=== PATIENT | female | born 1995 | race Two or more races ===

== ENCOUNTER 2019-12-19 13:42 | Emergency (ER) | payer OTHER ==
--- NOTE | 2019-12-19 15:12 | ED Physician Documentation ---
History of Present Illness - Stated complaint Stated Complaint: FEMALE - Chief complaint Chief Complaint: Abd Pain - Additonal information Additional information: 24-year-old female presents to the emergency department for concerns of possible early miscarriage. She reports that she has been having 6 days of brown vaginal spotting with light cramping. Last menstrual period November 06, 2019. This is her first . She denies any dysuria. She was seen at the [facility] and told recently that she had a hCG of 17,000. Review of Systems Eyes: reports: Reviewed and negative Ears: reports: Reviewed and negative Nose: reports: Reviewed and negative Throat: reports: Reviewed and negative Cardiac: reports: Reviewed and negative GI: reports: Abdominal Pain (abdominal cramping) : reports: Vaginal bleeding (brown spotting). denies: Dysuria, Frequency, Hesitancy Skin: denies: Rash, Lesions, Laceration (s), Bite / sting Musculoskeletal: denies: Neck pain, Back pain, Extremity pain, Joint pain, Extremity swelling Neurologic: reports: Reviewed and negative Psychiatric: reports: Reviewed and negative PD PAST MEDICAL HISTORY - Past Surgical History Past Surgical History: No - Present Medications Home Medications: Ambulatory Orders Medication Instructions Recorded Confirmed oxyCODONE [Roxicodone] 5 mg PO Q4-6H #10 tablet 12/02/15 - Allergies Allergies/Adverse Reactions: Allergies Allergy/AdvReac Type Severity Reaction Status Date / Time No Known Drug Allergies Allergy Verified 12/19/19 13:53 - Social History Does the pt smoke?: No Smoking Status: Never smoker Does the pt drink ETOH?: No Does the pt have substance abuse?: No - Immunizations Immunizations are current?: Yes PD ED PE NORMAL - General General: Alert and oriented X 3, No acute distress, Well developed/nourished - HEENT HEENT: PERRL, EOMI - Neck Neck: Supple, no meningeal sign, No adenopathy - Cardiac Cardiac: RRR, No murmur - Respiratory Respiratory: No respiratory distress - Abdomen Abdomen: Normal bowel sounds, Soft, Non tender, Non distended - Back Back: No CVA TTP, No spinal TTP - Derm Derm: Normal color, No rash Results - Vitals Vitals: Vital Signs - 24 hr 12/19/19 13:48 Temperature 37.1 C Heart Rate 79 Respiratory 18 Rate Blood Pressure 125/57 L O2 Saturation 99 Oxygen O2 Source Room air - Labs Labs: Laboratory Tests 12/19/19 12/19/19 12/19/19 14:43 15:12 15:12 WBC 6.0 RBC 3.65 L Hgb 12.7 Hct 35.7 L MCV 97.8 MCH 34.8 H MCHC 35.6 RDW 11.2 L Plt Count 279 MPV 9.3 Neut # (Auto) 3.9 Lymph # (Auto) 1.4 L [place] # (Auto) 0.5 Eos # (Auto) 0.1 Baso # (Auto) 0.0 Absolute Nucleated RBC 0.00 Nucleated RBC % 0.0 Sodium Potassium Chloride Carbon Dioxide Anion Gap BUN Creatinine Estimated GFR (MDRD) Glucose Calcium Total Bilirubin AST ALT Alkaline Phosphatase Total Protein Albumin Globulin Albumin/Globulin Ratio HCG, Quant Urine Color YELLOW Urine Clarity CLEAR Urine pH 6.0 Ur Specific [place] 1.020 Urine Protein NEGATIVE Urine Glucose (UA) NEGATIVE Urine Ketones NEGATIVE Urine Occult Blood NEGATIVE Urine Nitrite NEGATIVE Urine Bilirubin NEGATIVE Urine Urobilinogen 0.2 (NORMAL) Ur Leukocyte Esterase NEGATIVE Ur Microscopic Review NOT INDICATED Urine Culture Comments NOT INDICATED Urine HCG, Qual POSITIVE Blood Type O POSITIVE 12/19/19 12/19/19 15:12 15:12 WBC RBC Hgb Hct MCV MCH MCHC RDW Plt Count MPV Neut # (Auto) Lymph # (Auto) [place] # (Auto) Eos # (Auto) Baso # (Auto) Absolute Nucleated RBC Nucleated RBC % Sodium 132 L Potassium 3.5 Chloride 101 Carbon Dioxide 23 Anion Gap 8.0 BUN 14 Creatinine 0.6 Estimated GFR (MDRD) 123 Glucose 91 Calcium 9.7 Total Bilirubin 1.1 H AST 26 ALT 49 Alkaline Phosphatase 43 Total Protein 7.0 Albumin 4.4 Globulin 2.6 Albumin/Globulin Ratio 1.7 HCG, Quant 54181.00 Urine Color Urine Clarity Urine pH Ur Specific [place] Urine Protein Urine Glucose (UA) Urine Ketones Urine Occult Blood Urine Nitrite Urine Bilirubin Urine Urobilinogen Ur Leukocyte Esterase Ur Microscopic Review Urine Culture Comments Urine HCG, Qual Blood Type - Rads (name of study) pelvic US Radiology: Final report received (Single live IUP with ultrasound gestational age of 5 weeks and 6 days corresponding to ultrasound ABAD of 08/15/2019. Hypoechoic focus within the liver as above this appears inconsistent with a simple cyst or hemangioma unless lipid poor. While this could represent a compl ex cyst other etiologies can) PD MEDICAL DECISION MAKING - ED course Complexity details: reviewed old records, reviewed results, re-evaluated patient, considered differential, d/w patient ED course: To the emergency department in first trimester with 6 days of vaginal spotting. Concerned that she may be having a miscarriage. Patient is O+. Pelvic ultrasound reveals a live IUP 5 weeks 6 days. There are no other findings to suggest an ectopic or heterotopic . Her hCG today is 28,000. Patient reports to me that about 1 week ago she had an hCG of 17,000 so the 8 does appear to be rising. There is an incidental finding Of a hypoechoic focus within the liver. It does not appear consistent with a simple cyst but given the early we are unable to do further imaging such as MRI or CT. I have advised the patient and her of this finding. She is being given an ultrasound report to follow- up. I recommend that she have her hCG repeated in 48 hours through either the base physician or her OB if she is able to establish if not she may return to the ER to have the hCG repeated. Emergent return precautions for severe bleeding discussed. Departure - Departure Disposition: 01 Home, Self Care Clinical Impression: Threatened miscarriage in early , Liver lesion Condition: Stable Record reviewed to determine appropriate education?: Yes Instructions: ED Miscarriage Poss Comments: The ultrasound today shows that you are approximately 5 weeks 6 days . Your estimated due date is August 15, 2019. Your hCG level today was 28,000. This should be repeated in 48 hours. This can be done either through the base physician the OB you will establish with or if unable to arrange follow-up please return to the ER to have this lab drawn. The ultrasound did show a lesion within the liver that we are unsure what it may be today. It is important that a repeat ultrasound is completed in 2 to 3 weeks to have it reevaluated. Once you are past your second trimester in more definitive imaging such as a CAT scan or an MRI can be completed. If you develop fevers, have severe vaginal bleeding, feel faint or short of breath please return to the ER
[2019-12-19 15:15] LABS: BILIRUBIN,URINE NEGATIVE (NEGATIVE); GLUCOSE, URINE (UA) NEGATIVE (NEGATIVE); KETONES,URINE (UA) NEGATIVE (NEGATIVE); LEUKOCYTE ESTERASE, URINE NEGATIVE (NEGATIVE); NITRITE,URINE NEGATIVE (NEGATIVE); OCCULT BLOOD,URINE NEGATIVE (NEGATIVE); PROTEIN,URINE NEGATIVE (NEGATIVE); UROBILINOGEN,URINE 0.2 (NORMAL) E.U./dL (NORMAL)
[2019-12-19 15:17] LABS: CLARITY,URINE CLEAR (CLEAR); HCG UR QUAL POSITIVE
[2019-12-19 15:24] LABS: BASOPHILS % (AUTO) 0.3 %; EOSINOPHILS # (AUTO) 0.1 10^3/uL (0.0-0.7); EOSINOPHILS % (AUTO) 1.5 %; HGB - HEMOGLOBIN 12.7 g/dL (12.0-16.0); LYMPHOCYTES # (AUTO) 1.4 10^3/uL (1.5-3.5); LYMPHOCYTES % (AUTO) 23.6 %; MEAN CORPUSCULAR HEMOGLOBIN 34.8 pg (27.0-31.0); MEAN CORPUSCULAR HGB CONC 35.6 g/dL (32.0-36.0); MEAN CORPUSCULAR VOLUME 97.8 fL (81.0-99.0); MEAN PLATELET VOLUME 9.3 fL (7.9-10.8); MONOCYTES # (AUTO) 0.5 10^3/uL (0.0-1.0); MONOCYTES % (AUTO) 8.8 %; NEUTROPHILS # (AUTO) 3.9 10^3/uL (1.5-6.6); NEUTROPHILS % (AUTO) 65.5 %; PLT - PLATELET COUNT 279 10^3/uL (130-450); RED BLOOD COUNT 3.65 10^6/uL (4.20-5.40); RED CELL DISTRIBUTION WIDTH 11.2 % (12.0-15.0)
[2019-12-19 15:41] LABS: ALBUMIN 4.4 g/dL (3.2-5.5); ALBUMIN/GLOBULIN RATIO 1.7 (1.0-2.2); BILIRUBIN,TOTAL 1.1 mg/dL (0.2-1.0); CALCIUM 9.7 mg/dL (8.5-10.3); CREATININE 0.6 mg/dL (0.4-1.0)
--- NOTE | 2019-12-19 16:04 | Ultrasound Report ---
PROCEDURE: OB First Trimester INDICATIONS: vaginal spotting OUTSIDE/PRIOR DATING DATA: Last menstrual period (LMP): 11/06/19. LMP-based estimated date of delivery (ABAD): 08/12/2020 First dating scan (date and location): 12/19/2019. Estimated date of delivery (ABAD) from first dating scan: 08/14/2020. TECHNIQUE: Real-time scanning was performed of the fetus and maternal pelvic organs, with image documentation. COMPARISON: None FINDINGS: Embryo: Single live intrauterine is identified with heart rate 99 bpm. [place]-rump le ngth measures 3 mm, corresponding to 5 weeks 6 days. Measurement variability in dating: +/- 4 weeks by LMP, +/- 7 days by mean sac diameter (use before 6 weeks gestation if crown-rump length not able to be measured), +/- 5 days by crown-rump length (6-12 weeks gestation). Maternal organs: Ovaries are unremarkable. Limited images through the kidneys demonstrate no hydron ephrosis. There is mild fluid within the posterior cul-de-sac. An ill-defined hypoechoic mass is pre sent within the liver measuring 29 x 22 mm. No priors are available for comparison. IMPRESSION: 1. Single live intrauterine with ultrasound gestational age of 5 weeks 6 days corresponding to ultrasound ABAD of 08/15/2019. 2. Hypoechoic focus within the liver as above. This appears inconsistent with a simple cyst or shelly ioma, unless lipid poor. While this could represent a complex cyst, other etiologies cannot be exclud ed. Given , evaluation with CT or MRI is markedly limited. Short interval imaging follow-up with ultrasound is recommended until second trimester when MRI may be obtained. Reviewed by: Yudith Samson MD on 12/19/2019 4:03 PM PDT Approved by: Yudith Samson MD on 12/19/2019 4:03 PM PDT Station ID: [id number]
[2019-12-19 16:44] VITALS: BP 114/7
[2019-12-19 18:38] LABS: CANDIDA GROUP DNA NEGATIVE (NEGATIVE); CANDIDA KRUSEI DNA NEGATIVE (NEGATIVE); TRICHOMONAS VAGINALIS DNA NEGATIVE (NEGATIVE)
== END 2019-12-19 16:44 | disposition home or self-care (01) ==
LOC: ED 13:42
DX: O20.0 Threatened abortion (principal); O26.891 Other specified pregnancy related conditions, first trimester; K76.9 Liver disease, unspecified; Z3A.01 Less than 8 weeks gestation of pregnancy
CPT/HCPCS: 36415; 76801; 76817; 80053; 81001; 81003; 81025; 81599; 84702; 85025; 86900; 86901; 87086; 87210; 87491; 87591; 87661; 87801; 99284

== ENCOUNTER 2020-07-21 08:00 | Outpatient (CLI) | payer OTHER | END 2020-07-21 23:59 | disposition home or self-care (01) | LOC: LAB.R 08:00 | PROVIDERS: ATTEND Advanced Practice Midwife | DX: Z34.90 Encounter for supervision of normal pregnancy, unspecified, unspecified trimester (principal); Z36.85 Encounter for antenatal screening for Streptococcus B | CPT/HCPCS: 87797 ==

== ENCOUNTER 2020-08-06 14:07 | Outpatient (CLI) | payer OTHER ==
[2020-08-06 14:35] VITALS: BP 119/69
--- NOTE | 2020-08-06 16:35 | Ultrasound Report ---
PROCEDURE: OB Limited INDICATIONS: Vaginal bleeding in 3rd trimester-r/o abruption OUTSIDE/PRIOR DATING DATA: Last menstrual period (LMP): 11/06/2019. LMP-based estimated date of delivery (ABAD): 08/12/2020. First dating scan (date and location): 12/19/2019. Estimated date of delivery (ABAD) from first dating scan: 08/14/2020. Provider states 08/12/2020. TECHNIQUE: Real-time scanning was performed of the fetus, with image documentation. Endovaginal scanning: Not needed COMPARISON: 12/19/2019 OB ultrasound.. FINDINGS: A single living intrauterine gestation is present. Presentation: Vertex Placenta: Placental position is anterior, without previa. Amniotic fluid index: 19.5 cm, 17.2 percentile for gestational age. heart rate: 153 beats per minutes. Maternal cervical canal: Normal in morphology where well seen. No funneling. . Estimated gestational age from initial scan: 39 weeks 1 day. IMPRESSION: A definite source of reported vaginal bleeding is not seen. Placental abruption was not identified. heart rate is normal at 1 53 bpm and the amniotic fluid index also is normal. Reviewed by: Jim Nesbitt MD on 08/06/2020 4:34 PM PDT Approved by: Jim Nesbitt MD on 08/06/2020 4:34 PM PDT Station ID: [id number]
--- NOTE | 2020-08-07 11:45 | PROVIDER PROGRESS NOTE ---
- HPI Chief Complaint: Vaginal bleeding Current : Current EDU 08/12/20 Gestation 39 Weeks and 1 Days 1 Para 0 Vital Signs Temperature 36.8 C 08/06/20 14:29 Heart Rate 94 08/06/20 14:29 Respiratory Rate 16 08/06/20 14:29 Blood Pressure 119/69 08/06/20 14:29 O2 Saturation 100 08/06/20 14:29 Temperature 36.8 C 08/06/20 14:29 Heart Rate 94 08/06/20 14:29 Respiratory Rate 16 08/06/20 14:29 Blood Pressure 119/69 08/06/20 14:29 O2 Saturation 100 08/06/20 14:29 - Procedures OB Procedure Performed: NST NST Procedure: NST Procedure Start Date 08/06/20 Start Time 14:20 Stop Time 15:00 Vibroacoustic Stimulation Used No Patient States Movement Yes - Plan Plan: S: Nataly presents to triage today for ongoing bleeding since last night. She reports having intercourse last night, then when she got up to urinate she experienced bright red bleeding that dripped into the toilet that she felt was coming from her vagina. She called the on-call CNM and was advised that if the bleeding had stopped, and there were no ctx, and +FM she could watch and wait. She then reports going to the bathroom to urinate and defecate, and when she looked into the toilet it was "filled with blood". She reports notmal movment and denies GIVENS, LOF, or ctx. O: Speculum exam reveals closed cervix and no trace blood or discolored discharge SVE- closed/thick/high US- no signs of abruption or identified source of bleeding NST perform date: 08/06/2020 NST read date: 08/06/2020 baseline 145, moderate variability, accels, no decels- some periods of prolonged accelerations/baseline change with reported activity during that time. Baseline returned to wnl before discharge A: 25yo at 39.1 wks with abnormal bleeding in , possibly from rectum No signs of placental abruption or vaginal/cervical laceration NST impression: reactive P: Continue with routin care Call or return with any further symptoms, or when in labor!
== END 2020-08-06 17:20 | disposition home or self-care (01) ==
LOC: WFO 14:07 → FBP 14:11 → WFO 17:20
PROVIDERS: ATTEND Advanced Practice Midwife
DX: O46.93 Antepartum hemorrhage, unspecified, third trimester (principal); Z3A.39 39 weeks gestation of pregnancy
CPT/HCPCS: 59025; 99213

== ENCOUNTER 2020-08-14 16:43 | Inpatient (IN) | payer OTHER ==
[2020-08-14] MEDS ORDERED: SODIUM CHLORIDE FLUSH 0.9% 10 ML SYRINGE IVP PRN (17:43)
[2020-08-14] MEDS ORDERED: OXYTOCIN/SODIUM CHLORIDE 500 ML IV PRN (17:43)
[2020-08-14] MEDS ORDERED: TRANEXAMIC ACID IN NACL 1,000 MG/100 ML BAG IV PRN (17:43)
[2020-08-14] MEDS ORDERED: CARBOPROST TROMETHAMINE 250 MCG/ML AMP IM PRN (17:43)
[2020-08-14] MEDS ORDERED: METHYLERGONOVINE 0.2 MG/ML VIAL IM PRN (17:43)
[2020-08-14] MEDS ORDERED: LIDOCAINE-MPF 1% 30 ML VIAL ID PRN (17:43)
[2020-08-14] MEDS ORDERED: OXYTOCIN 10 UNIT/ML VIAL IM PRN (17:43)
[2020-08-14] MEDS ORDERED: miSOPROStoL 200 MCG TABLET BC PRN (17:43)
[2020-08-14] MEDS ORDERED: ONDANSETRON 4 MG/2 ML VIAL IVP PRN (17:43)
--- NOTE | 2020-08-14 17:56 | HISTORY & PHYSICAL EXAMINATION ---
Admit History - Visit Reason Visit Reason: Other - : 1 Parity: 0 Premature: 0 Ectopic: 0 : 0 Care: positive: [facility] Risk/History: positive: None Complications This : positive: None Smoking Status: Never smoker - Mother's Labs Mother's Blood Type: positive: O Mother's RH: positive: Positive GBS: positive: Group B Step Negative Rubella Status: positive: Immune Meds/Allgy - Home Medications Home Medications: Ambulatory Orders Medication Instructions Recorded Confirmed oxyCODONE [Roxicodone] 5 mg PO Q4-6H #10 tablet 12/02/15 - Allergies Allergies/Adverse Reactions: Allergies Allergy/AdvReac Type Severity Reaction Status Date / Time No Known Drug Allergies Allergy Verified 12/19/19 13:53 Review of Systems - Constitutional Constitutional: denies: Fatigue, Fever, Chills, Malaise - Eyes Eyes: denies: Blurred vision, Spots in vision, Dipolpia - Cardiovascular Cariovascular: denies: Irregular heart rate, Palpitations, Chest pain, Edema - Respiratory Respiratory: denies: Cough, SOB at rest - Gastrointestinal Gastrointestinal: denies: Constipation, Diarrhea, Change in bowel habits, Nausea, Vomiting - Integumentary Integumentary: denies: Rash, Pruritis - Neurological Neurological: denies: Headache Physical - Abdominal Exam Vital Signs: Temp Pulse Resp BP Pulse Ox 36.7 C 100 16 114/67 08/14/20 17:16 08/14/20 17:16 08/14/20 17:16 08/14/20 17:16 Contraction Frequency (min/apart): intermittent Contraction Intensity: positive: Mild Uterine Resting Tone: positive: Soft - Monitoring Heart Rate Baseline: 135 Strip Review: positive: Category I - Presentation Presentation: positive: Vertex - Vaginal Exam Membranes: positive: Membranes intact Dilation (in cm): 1 Effacement (%): 50 Station: positive: -3 Cervical Position: positive: Posterior - Speculum Exam Speculum Exam Performed: positive: No Plan for Labor - Plan For Labor I expect patient to be DC'd or transferred within 96 hours.: Yes Plan for Labor: HPI: Nataly is a 25yo @ 40.2wks gestation by LMP c/w 10.2wk U/S who presents to [facility] for elective induction of labor. She denies vaginal bleeding or leakage of fluid. She reports +FM. She is not feeling any of the contractions that are noted via tocometry. SVE 150/-3, posterior, medium consistency. Vertex. She has been a patient of [facility] since her transfer of care from [facility] at 32wks gestation. She has received consistent care through the duration of her which has remained uncomplicated. She will be placed in observation status for pre-induction cervical ripening with misoprostol and was consented for elective induction of labor in the office last week. She is supported by her parter Thony. Dating Criteria: LMP 11/06/2019 Initial U/S @ 10.2wks c/w LMP dating Serial exams - agree Medications: PNV Allergies: NKDA OB Hx: G1: Current PMHx: no significant Surgical Hx: [place] teeth 2014 Social Hx: Never smoker, no etoh or IVDA. Partner Thony is active duty. Expecting a girl - planning to name her Roseanna. Family Hx: no significant course: Initial U/S: at 10.2wks at [facility] c/w sure LMP for final ABAD 08/12/2020 O pos/Rubella immune VZV- immune Gentic testing: Serum- neg; CF- neg; SMNI neg FAS: Anterior placenta. FRACISCO wnl. 3VC. EFW 38%. f/u outflow tracks f.u wnl Glucola: 117 Flu: received at [facility] TDAP : received at [facility] GBS & GC/CT at 36.6 NEG HSV: denies self and partner Breast pump Rx : already received MOD: . Spouse Thony. GIRL: Roseanna. Epidural would be "last resort" pp contraception: POPs PAP: 02/2019- nilm (LGSIL 11/25) Physical exam: Normocephalic, atraumatic Heart RRR w/o M/G/R Lungs CTAB Abdomen gravid, soft, and nontender EFW 3800g FHR baseline 135, moderate variability, + accels, no decels Contractions palpate mild intermittently via tocometry SVE 1/50/-3, posterior. Medium consistency. Vertex. Bilateral LE's no edema. Mood is good. Assessment: 25yo @ 40.2wks gestation by LMP c/w 10.2wk U/S Elective IOL FHR Category I GBS neg Plan: Initiate 50mcg BC misoprostol q 4 hours for cervical ripening Ambien PRN for sleep Continuous monitoring Repeat SVE in 4 hours and consider brown cervical ripening balloon if unchanged. Anticipate . Pt and partner at the bedside verbalized understanding and agrees to above plan. She denies further questions or concerns at this time.
[2020-08-14] MEDS: miSOPROStoL 100 MCG TABLET BC SCH ×2 (18:30→22:35)
[2020-08-14 18:39] LABS: BASOPHILS % (AUTO) 0.3 %; EOSINOPHILS # (AUTO) 0.1 10^3/uL (0.0-0.7); EOSINOPHILS % (AUTO) 1.1 %; HCT - HEMATOCRIT 33.3 % (37.0-47.0); HGB - HEMOGLOBIN 11.6 g/dL (12.0-16.0); LYMPHOCYTES # (AUTO) 1.4 10^3/uL (1.5-3.5); LYMPHOCYTES % (AUTO) 21.3 %; MEAN CORPUSCULAR HEMOGLOBIN 33.9 pg (27.0-31.0); MEAN CORPUSCULAR HGB CONC 34.8 g/dL (32.0-36.0); MEAN CORPUSCULAR VOLUME 97.4 fL (81.0-99.0); MEAN PLATELET VOLUME 9.5 fL (7.9-10.8); MONOCYTES # (AUTO) 0.5 10^3/uL (0.0-1.0); MONOCYTES % (AUTO) 8.1 %; NEUTROPHILS # (AUTO) 4.4 10^3/uL (1.5-6.6); NEUTROPHILS % (AUTO) 68.7 %; PLT - PLATELET COUNT 297 10^3/uL (130-450); RED BLOOD COUNT 3.42 10^6/uL (4.20-5.40); WHITE BLOOD COUNT 6.3 x10^3/uL (4.8-10.8)
[2020-08-14] MEDS: LACTATED RINGERS 1,000 ML IV SCH (19:57)
[2020-08-14] MEDS: ZOLPIDEM 5 MG TABLET PO PRN (22:35)
[2020-08-15] MEDS: SODIUM CHLORIDE FLUSH 0.9% 10 ML SYRINGE IVP SCH ×2 (02:45→02:49)
[2020-08-15] MEDS: miSOPROStoL 100 MCG TABLET BC SCH ×4 (02:47→21:55)
--- NOTE | 2020-08-15 09:53 | PROVIDER PROGRESS NOTE ---
Labor Progress Note - Uterine Monitoring Uterine Monitoring Mode: positive: External toco Contraction Frequency (min/apart): intermittent Contraction Intensity: positive: Mild Uterine Resting Tone: positive: Soft - Monitoring Heart Rate Baseline: 130 Heart Rate Variability: positive: Moderate (6-25 bmp) Accelerations: positive: Present, 15x15 Strip Review: positive: Category I - Vaginal Exam Dilation (in cm): 1 Effacement (%): 50 Station: -3 Cervical Position: Anterior - Labor Progress Note Labor Progress Note/Additional Text: S: Pt states she slept well last night after taking the ambien. Her partner is supportive at the bedside. She denies vaginal bleeding or leakage of fluid. She is unable to appreciate contractions and states she feels like it is just the baby moving. She denies concerns or complaints at this time. O: FHR baseline 130s, moderate variability, + accels. One prolonged late deceleration noted when the pt stood up after using the bathroom. This is an isolated deceleration and has not occurred prior to or since that time. Contractions palpate mild every 3-8 minutes with soft resting tone SVE 1/50/-3, anterior. Vertex. Membranes intact. S/p 4 doses of 50mcg BC misoprostol [place] cervical ripening balloon placed with 60mL in uterine lumen and 60mL in vaginal lumen - pt tolerate placement well A: 25yo @ 40.3wks gestation Elective IOL GBS neg FHR Category I P: Cervical ripening balloon x 12 hours. Continue 50mcg BC misoprostol q 4 hours. Continuous monitoring Encouraged ambulation and position changes. Jacuzzi PRN. Nitrous oxide PRN. Pt and partner verbalized understanding and agree to above plan. She denies further questions or concerns at this time.
[2020-08-15] MEDS: LACTATED RINGERS 1,000 ML IV SCH (12:37)
--- NOTE | 2020-08-15 14:16 | PROVIDER PROGRESS NOTE ---
Labor Progress Note - Uterine Monitoring Uterine Monitoring Mode: positive: External toco Contraction Frequency (min/apart): 1-4 Contraction Intensity: positive: Mild Uterine Resting Tone: positive: Soft - Monitoring Monitor Mode: positive: External ultrasound Heart Rate Baseline: 150 Heart Rate Variability: positive: Moderate (6-25 bmp) Accelerations: positive: Present, 15x15 Strip Review: positive: Category I - Labor Progress Note Labor Progress Note/Additional Text: I was called to the bedside secondary to prolonged late deceleration. This is the second prolonged late deceleration the patient has had. Of note, the patient states she was bearing down to have a bowel movement with each episode. FHR recovered with initial period of minimal variability following deceleration however this has improved and currently FHR baseline 150, moderate variability, + accels, no decels. Misoprostol held at this time. [place] cervical ripening balloon remains in place. eye glass frame polisher physician notified and agrees with plan to proceed at this time. Continuous monitoring.
[2020-08-15] MEDS: ZOLPIDEM 5 MG TABLET PO PRN (23:09)
[2020-08-16] MEDS: miSOPROStoL 100 MCG TABLET BC SCH (02:24)
--- NOTE | 2020-08-16 08:07 | PROVIDER PROGRESS NOTE ---
Labor Progress Note - Uterine Monitoring Uterine Monitoring Mode: positive: External toco Contraction Frequency (min/apart): 4-8 Contraction Intensity: positive: Mild Uterine Resting Tone: positive: Soft - Monitoring Monitor Mode: positive: External ultrasound Heart Rate Baseline: 130 Heart Rate Variability: positive: Moderate (6-25 bmp) Accelerations: positive: Present, 15x15 Decelerations: positive: None Strip Review: positive: Category I - Vaginal Exam Dilation (in cm): 3 Effacement (%): 90 Station: -3 Cervical Position: Midposition - Labor Progress Note Labor Progress Note/Additional Text: S: Nataly slept well throughout the night after taking an ambien. Her partner is currently at the bedside and is supportive. She states she is starting to feeling more uncomfortable with the contractions. She denies vaginal bleeding or leakage of fluid. Her mood is good. O: BP 114/61, HR 62, RR 18, T 36.9 FHR baseline 140, moderate variability, + accels, no decels at present Contractions palpate mild every 4-8 minutes with soft resting tone SVE 3/90/-3, midposition, soft. Vertex. Membranes intact - bulging. A: 25yo @ 40.4wks gestation by LMP c/w 10.2wk U/S Elective IOL FHR Category I GBS neg P: Admit to [facility] (previously in observation status) Continuous monitoring Initiate pitocin with titration per protocol for induction of labor at 0900. Jacuzzi PRN. Nitrous oxide PRN. Epidural per maternal request. Anticipate . Total care handed to building construction foreman physician Dr. Henson by phone.
[2020-08-16] MEDS ORDERED: OXYTOCIN/SODIUM CHLORIDE 500 ML IV SCH (09:00)
--- NOTE | 2020-08-16 09:54 | PROVIDER PROGRESS NOTE ---
Subjective - Subjective Subjective: I assumed care of Nataly today from [facility]--healthy 25yo G1 at 40w4d undergoing elective IOL. In the past 48h she has had 2 large variable decelerations lasting about 3min associated with position changes so she is not a candidate for discharge home. Currently she is feeling moderate contractions q5min. PMH neg, no allergies, no complications, dated by LMP c/w 10w US. AVSS Category 1 NST [place] not picking up well Last SVE /-3/mid/soft/BBOW A/P: 25yo P0 at 40w4d, elective IOL Labor: 3cm, start pitocin, has had ripening for 2d with cervical balloon and multiple doses of misoprostol. Anticipate . Prefers unmedicated . Fetus: Vertex, category 1 NST currently, EFW 3800g, normal anatomy, normal genetic screening , GBS neg : no issues identified. O+, RI/, s/p Tdap Objective - Vital Signs/Intake & Output Intake & Output: Intake & Output 08/13/20 08/14/20 08/15/20 08/16/20 23:59 23:59 23:59 23:59 Intake Total 791.666 Balance 791.666 - Lab Results Fish Bones: 08/14/20 18:31
[2020-08-16] MEDS ORDERED: BUPIVACAINE 0.25% PF 10 ML VIAL ONE (12:51)
[2020-08-16] MEDS ORDERED: fentaNYL 100 MCG/2 ML VIAL ONE ×2 (12:51→15:34)
[2020-08-16] MEDS ORDERED: ROPIVACAINE 0.2% 200 MG/100 ML BAG EP ONE (12:51)
[2020-08-16] MEDS ORDERED: METOCLOPRAMIDE 10 MG/2 ML VIAL IVP PRN ×2 (13:49→17:13)
[2020-08-16] MEDS ORDERED: NALBUPHINE 10 MG/ML AMP IVP PRN ×2 (13:49→17:13)
[2020-08-16] MEDS ORDERED: NALOXONE 0.4 MG/ML VIAL IVP PRN ×2 (13:49→17:13)
[2020-08-16] MEDS ORDERED: ROPIVACAINE 0.2% 200 MG/100 ML BAG EP PRN (13:49)
[2020-08-16] MEDS ORDERED: ONDANSETRON 4 MG/2 ML VIAL IVP PRN ×2 (13:49→17:13)
[2020-08-16] MEDS ORDERED: diphenhydrAMINE INJ 50 MG/ML VIAL IVP PRN ×2 (13:49→17:13)
[2020-08-16] MEDS ORDERED: ePHEDrine 50 MG/ML VIAL IVP PRN ×2 (13:49→17:13)
--- NOTE | 2020-08-16 13:49 | ANESTHESIA ---
Pre-Anesthesia VS, & Labs - Diagnosis Active labor - Procedure Labor epidural Vital Signs: Temp Pulse Resp BP Pulse Ox 36.7 C 100 16 114/67 08/14/20 17:16 08/14/20 17:16 08/14/20 17:16 08/14/20 17:16 Height: 4 ft 11 in Weight (kg): 84.55 kg Body Mass Index: 37.6 BMI Classification: Obese - NPO >8 hours - Is Patient ?: Yes - Lab Results Current Lab Results: Laboratory Tests 08/14/20 18:31: Blood Type O POSITIVE, Antibody Screen NEGATIVE 08/14/20 18:31: WBC 6.3, RBC 3.42 L, Hgb 11.6 L, Hct 33.3 L, MCV 97.4, MCH 33.9 H, MCHC 34.8, RDW 14.0, Plt Count 297, MPV 9.5, Neut # (Auto) 4.4, Lymph # (Auto) 1.4 L, [place] # (Auto) 0.5, Eos # (Auto) 0.1, Baso # (Auto) 0.0, Absolute Nucleated RBC 0.00, Nucleated RBC % 0.0 Lab results reviewed: Yes Fish Bones: 08/14/20 18:31 Home Medications and Allergies Active Medications Carboprost Tromethamine (Carboprost Tromethamine 250 Mcg/Ml Amp) 250 mcg IM Q15M PRN PRN Reason: Step 4: Hemorrhage protocol Stop: 08/19/20 17:43 Oxytocin/Sodium Chloride (Pitocin/Sodium Chloride) 500 mls @ 999 mls/hr IV PRN PRN; Protocol PRN Reason: POST- HEMORR PREVENTION Stop: 08/19/20 17:43 Tranexamic Acid (Tranexamic 1,000 Mg/100ml-Nacl) 1,000 mg in 100 mls @ 600 mls/hr IV .ONCE PRN PRN Reason: EBL >1200mL and within 3hr Stop: 08/19/20 17:43 Lactated Ringer's (Lr) 1,000 mls @ 100 mls/hr IV .Q10H NIKKO Last Infusion: 08/16/20 10:05 Dose: 100 mls/hr Documented by: Oxytocin/Sodium Chloride (Pitocin/Sodium Chloride) 500 mls @ 1 mls/hr IV TITR NIKKO; Protocol Last Admin: 08/16/20 10:05 Dose: 1 milliunit/min, 1 mls/hr Documented by: Lidocaine HCl (Lidocaine-Mpf 1% 30 Ml Vial) 30 ml ID .ONCE PRN PRN Reason: PERINEAL REPAIR Stop: 08/19/20 17:43 Methylergonovine Maleate (Methylergonovine 0.2 Mg/Ml Vial) 0.2 mg IM .ONCE PRN PRN Reason: Step 2: Hemorrhage protocol Stop: 08/19/20 17:43 Misoprostol (Misoprostol 200 Mcg Tablet) 800 mcg BC .ONCE PRN PRN Reason: Step 3: Hemorrhage protocol Stop: 08/19/20 17:43 Misoprostol (Misoprostol 100 Mcg Tablet) 50 mcg BC Q4HR [facility] Last Admin: 08/16/20 02:24 Dose: 50 mcg Documented by: Ondansetron HCl (Ondansetron 4 Mg/2 Ml Vial) 4 mg IVP Q4HR PRN PRN Reason: Nausea / Vomiting Oxytocin (Oxytocin 10 Unit/Ml Vial) 10 unit IM .ONCE PRN PRN Reason: Step one: If no IV access Stop: 08/19/20 17:43 Sodium Chloride (Sodium Chloride Flush 0.9% 10 Ml Syringe) 10 ml IVP 0100,0900,1700 [facility] Last Admin: 08/15/20 02:49 Dose: 10 ml Documented by: Sodium Chloride (Sodium Chloride Flush 0.9% 10 Ml Syringe) 10 ml IVP PRN PRN PRN Reason: NEEDED PER PROVIDER ORDERS Zolpidem Tartrate (Zolpidem 5 Mg Tablet) 5 mg PO QPM PRN PRN Reason: Insomnia Last Admin: 08/15/20 23:09 Dose: 5 mg Documented by: Allergies/Adverse Reactions: Allergies Allergy/AdvReac Type Severity Reaction Status Date / Time No Known Drug Allergies Allergy Verified 12/19/19 13:53 Anes History & Medical History - Anesthetic History Anesthesia Complications: reports: No previous complications Family history of Anesthesia Complications: Denies Family history of Malignant Hyperthermia: Denies - Medical History Cardiovascular: reports: None Pulmonary: reports: None Gastrointestinal: reports: None Urinary: reports: None Neuro: reports: None Musculoskeletal: reports: None Endocrine/Autoimmune: reports: None Blood Disorders: reports: None Skin: reports: None Smoking Status: Never smoker Psychosocial: reports: No issues indicated History of Cancer?: No - Obstetrical History : 1 Parity: 0 Events: reports: None Complications: reports: None Exam General: Alert, Oriented x3, Cooperative, No acute distress Plan Anesthesia Type: Epidural Consent for Procedure(s) Verified and Reviewed: Yes Code Status: Attempt Resuscitation ASA classification: 2-Mild systemic disease Is this case an emergency?: No
--- NOTE | 2020-08-16 13:55 | PROVIDER PROGRESS NOTE ---
Labor Progress Note - Labor Progress Note Labor Progress Note/Additional Text: comfortable with epidural, pain 04/20. Category 1 NST with early decels. [place] was q2min, pit turned down, now UC less frqeuent than q3min. 8-9/100/-3. Unusually high station for primip especially. Will work back up on pitocin, do aggressive position changes with peanut ball, and consider AROM later.
[2020-08-16] MEDS ORDERED: TERBUTALINE 1 MG/ML VIAL SUBQ ONE (14:23)
--- NOTE | 2020-08-16 14:38 | PROVIDER PROGRESS NOTE ---
Subjective - Subjective Subjective: Initally was having a early decels with contractions, now having variable decel with every contraction including a 2.5min one with ton of 70bpm. Pitocin off, IVF bolus going, doing position changes which has helped. Ongoing variablity is excellent and baseline is 135bpm. 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 Terbutaline readily available. Patient consented for possible . Procedure and recovery reviewed. Risks include but not limited to bleeding, infection, trauma to local organs, anesthesia complications, and problems with future pregnancies due to scar on the uterus. All questions answered and consent signed. [employer] prep done. Objective - Vital Signs/Intake & Output Intake & Output: Intake & Output 08/13/20 08/14/20 08/15/20 08/16/20 23:59 23:59 23:59 23:59 Intake Total 791.666 0 Balance 791.666 0 - Lab Results Fish Bones: 08/14/20 18:31
[2020-08-16] MEDS ORDERED: ceFAZolin 2 GM/50 ML 2 GM/50 ML BAG IV ONE (15:32)
[2020-08-16] MEDS ORDERED: MORPHINE PF 5 MG/10 ML VIAL ONE (15:34)
[2020-08-16] MEDS ORDERED: LIDOCAINE 2%-EPI 1:100000 20 ML MDV ONE (15:34)
[2020-08-16] MEDS ORDERED: LIDOCAINE MPF 2%-EPI 1:200000 20 ML VIAL ONE (15:36)
[2020-08-16] MEDS ORDERED: LIDOCAINE 1% 50 ML MDV ONE (15:38)
[2020-08-16] MEDS ORDERED: ceFAZolin 1 GM VIAL ONE (15:38)
[2020-08-16] MEDS ORDERED: ONDANSETRON 4 MG/2 ML VIAL ONE (15:39)
[2020-08-16] MEDS ORDERED: SODIUM CHLORIDE 0.9% 10 ML VIAL IVP ONE (15:41)
[2020-08-16] MEDS ORDERED: fentaNYL 100 MCG/2 ML VIAL EP ONE (16:00)
[2020-08-16] MEDS ORDERED: MORPHINE PF 5 MG/10 ML VIAL EP ONE (16:00)
[2020-08-16] MEDS ORDERED: miSOPROStoL 200 MCG TABLET ONE (16:01)
[2020-08-16] MEDS ORDERED: CARBOPROST TROMETHAMINE 250 MCG/ML AMP IM ONE (16:02)
[2020-08-16] MEDS ORDERED: METHYLERGONOVINE 0.2 MG/ML VIAL ONE (16:02)
[2020-08-16] MEDS ORDERED: SODIUM CHLORIDE 0.9% 300 ML IV ONE (17:07)
--- NOTE | 2020-08-16 17:13 | ANESTHESIA POST OP EVALUATION ---
Anesthesia Post Eval - Post Anesthesia Eval Vitals: Last Vital Signs Temp 36.6 C 08/16/20 17:05 Pulse 92 08/16/20 17:05 Resp 17 08/16/20 17:05 BP 110/66 08/16/20 17:05 Pulse Ox 99 08/16/20 17:05 CV Function Including HR & BP: Stable Pain Control: Satisfactory Nausea & Vomiting: Negative Mental Status: Baseline Respiratory Status: Airway Patent Hydration Status: Satisfactory Anesthesia Complications: None
[2020-08-16] MEDS ORDERED: HYDROCORTISONE 1% CREAM 28 GM TUBE PR PRN (17:14)
[2020-08-16] MEDS ORDERED: WITCH HAZEL/GLYCERIN 1 PAD TOP PRN (17:14)
[2020-08-16] MEDS ORDERED: ONDANSETRON ODT 4 MG TABLET TL PRN (17:14)
--- NOTE | 2020-08-16 17:23 | OPERATIVE REPORT ---
Operative Report - General Admit Date: 08/16/20 Procedure Date: 08/16/20 Procedure Performed: Date of service: 08/16/2020 Preoperative diagnosis: Non-reassuring surveillance Postoperative diagnosis: same Procedure: section, primary low transverse Surgeon: [employer] Inspector: Dr. Hernández needed to provide adequate retraction and expulsion to perform surgery Anesthesia: Epidural Estimated Blood Loss: 550cc IV Fluids: 1000cc Urine output: 150cc Counts: correct sponge and instrument Complications: none apparent Disposition: stable to recovery room Prophylaxis: SCD to bilateral lower extremities, Ancef 2g IV Specimens: Cord blood for typing Findings: Clear amniotic fluid with terminal meconium. Liveborn female, apgars 8/9. Loose nuchal umbilical cord compressed between head and lower uterine segment. Normal uterus. Ovaries and fallopian tubes palpated normal. Counseling: Patient was having late and variable decelerations with each contraction, refractory to position changes. Her station was abnormally high at -3. We were unable to effect adequate contractions as we were not able to give pitocin. She was offered vs. trial of rupture of membranes and she chose . Procedure: The patient was brought to the operating room, where her existing epidural was bolused. Patient's brown had been placed in the labor suite. SCDs were placed. She was prepped and draped in the usual sterile fashion. A scalpel was used to make a Pfannenstiel skin incision 3 cm superior to the pubic symphysis. This was carried down to the fascia, which was nicked in the midline bilaterally. The fascial incision was extended laterally and slightly superiorly, sharply. Kochers were placed on the inferior margin of the fascial incision and the fascia was bluntly and sharply dissected off of the rectus. The Kochers were replaced superiorly and the same was performed. The peritoneum was bluntly entered. The peritoneum and rectus were stretched and room was adequate. A bladder retractor was placed. A scalpel was used to make a transverse incision in the lower uterine segment. The uterus was breeched with a finger. The uterine incision was opened bluntly by applying caudal and cranial traction. The membranes were ruptured with clear fluid present. The surgeon's hand was placed in the uterine cavity and the head was elevated and then delivered with the assistance of fundal pressure. The umbilical cord was clamped x2 and cut and the baby was handed to the bean sorter in waiting. The placenta was delivered with external uterine massage. Curettage with a dry laparotomy did not yield any retained membranes. The uterine incision was closed with a running layer of 0 Vicryl. A second imbricating suture was performed. Palpation of the ovaries and fallopian tubes was normal. The uterine incision, rectus, and fascia were inspected with good hemostasis seen. The gutters were irrigated with sloppy wet laps. The peritoneum was marked with hemostats and closed with interrupted figure of 8s of 2-0 vicryl. The rectus was plicated with interrupted figure of 8s of 2-0 Vicryl. The fascia was closed with a running layer of 0 Vicryl from end-to-end. The subcutaneous ti ssues were copiously irrigated and then closed with a running suture of 2-0 Vicryl. The skin was closed with 4-0 Monocryl in a subcuticular fashion. Dermabond was then applied. Fundal massage yielded a normal amount of blood and clot. She was transported to the recovery room without difficulty.
[2020-08-16] MEDS ORDERED: OXYTOCIN 10 UNIT/ML VIAL ONE (17:34)
[2020-08-16] MEDS: KETOROLAC 30 MG/ML VIAL IVP SCH (19:00)
[2020-08-16] MEDS: ACETAMINOPHEN 500 MG TABLET PO SCH (20:47)
[2020-08-16] MEDS: DOCUSATE SODIUM 100 MG CAPSULE PO SCH (20:47)
[2020-08-17] MEDS: KETOROLAC 30 MG/ML VIAL IVP SCH ×3 (01:17→14:55)
[2020-08-17] MEDS: SIMETHICONE CHEW 80 MG TABLET PO PRN ×2 (03:01→08:01)
[2020-08-17] MEDS: ACETAMINOPHEN 500 MG TABLET PO SCH ×3 (04:59→23:09)
[2020-08-17] MEDS: DOCUSATE SODIUM 100 MG CAPSULE PO SCH ×2 (08:01→20:42)
[2020-08-17] MEDS: SODIUM CHLORIDE FLUSH 0.9% 10 ML SYRINGE IVP SCH (08:03)
--- NOTE | 2020-08-17 18:23 | PROVIDER PROGRESS NOTE ---
Subjective - Subjective Subjective: S: Patient eating, urinating, ambulating, and well. No heavy bleeding or mood problems. Pain is under good control. No faintness. AVSS, BP is low but HR is normal. Alert, smiling, no apparent distress Abd soft, nontender, non-distended Fundus nontender at umbilicus Incision c/d/i. Impression and plan: P1 POD#1 s/p primary doing well, routine care. Objective - Vital Signs/Intake & Output Vital Signs: Vital Signs x48h Temp Pulse Resp BP Pulse Ox 08/17/20 16:55 98.6 F 80 18 94/54 L 100 Intake & Output: Intake & Output 08/14/20 08/15/20 08/16/20 08/17/20 23:59 23:59 23:59 23:59 Intake Total 791.666 928.334 440 Output Total 375 1065 Balance 791.666 553.334 -625 - Lab Results Fish Bones: 08/14/20 18:31
[2020-08-17] MEDS: IBUPROFEN 600 MG TABLET PO SCH (20:42)
[2020-08-18] MEDS: IBUPROFEN 600 MG TABLET PO SCH ×2 (02:50→09:19)
[2020-08-18] MEDS: SIMETHICONE CHEW 80 MG TABLET PO PRN (02:51)
[2020-08-18 07:54] VITALS: BP 107/62
[2020-08-18] MEDS: ACETAMINOPHEN 500 MG TABLET PO SCH (07:55)
[2020-08-18] MEDS: DOCUSATE SODIUM 100 MG CAPSULE PO SCH (09:19)
--- NOTE | 2020-08-18 13:15 | Discharge Plan ---
Discharge Plan Problem Reviewed?: Yes Disposition: Home, Self Care Condition: Good Prescriptions: Acetaminophen [Acetaminophen Extra Strength] 1,000 mg PO Q6H PRN #45 tablet PRN Reason: Pain Docusate Sodium 100Mg Capsule [Colace 100Mg Capsule] 100 mg PO BID PRN #30 cap PRN Reason: to soften stool Ibuprofen [Motrin] 600 mg PO Q6H PRN #30 tab PRN Reason: Pain oxyCODONE [Roxicodone] 2.5 - 5 mg PO Q4H PRN #20 tablet PRN Reason: Severe Pain Diet: Regular Activity Restrictions: no lifting more than 10# Shower Restrictions: No Driving Restrictions: Yes (not while on oxycodone) No Smoking: If you smoke, Please STOP! Call for help. Follow-up with: Natacha Henson MD [Provider Admit Priv/Credential] - 1 Week
--- NOTE | 2020-08-18 16:43 | Labor Flowsheet ---
Labor Flowsheet Datetime Report Generated by CPN: 08/18/2020 16:42 Datetime: 08/16/2020 15:42 UTERINE ACTIVITY Monitor Mode: External Frequency (min): 5 Quality: Moderate Duration (sec): 60-90 Pattern: Normal: <= 5 Contractions in 10 Minutes Resting Tone (Palpate): Relaxed ASSESSMENT A Monitor Mode: External US FHR Baseline Rate : 135 Variability: Moderate 6-25 bpm Accelerations: 15X15 Decelerations: Variable Category: Category II Patient Care Comments: monitors off for transport to OR Datetime: 08/16/2020 15:40 Pulse: 66 SpO2 (%): 100 LaborFlag: Labor Datetime: 08/16/2020 15:30 VITAL SIGNS NBP Sys/Lisa/Mean (mmHg): 110 : 59 : 71 Comments: subtle late decelerations Datetime: 08/16/2020 14:50 Actions for Decelerations: Oxygen Applied Oxygen Amount (LPM): 10 Datetime: 08/16/2020 14:44 Patient Position/Activity: Left Extreme Datetime: 08/16/2020 14:38 VAGINAL EXAM Dilatation (cm): 8.5 Effacement (%): 100 Station: -3 Exam by: Dr. T Datetime: 08/16/2020 14:15 MEDICATIONS Pitocin (milliunits): Discontinued Datetime: 08/16/2020 14:11 I/O Interventions: [place] Cath Inserted Datetime: 08/16/2020 13:31 PAIN Pain Scale: 7 Pain Presence: Intermittent Pain Type: Cramping; Contraction Pain Location: Abdomen Datetime: 08/16/2020 13:28 Epidural Procedure Other: Single Dose Datetime: 08/16/2020 13:26 Epidural Procedure: Completed Datetime: 08/16/2020 13:15 Medication Comments: pitocin decreased per Dr. Henson's verbal order Datetime: 08/16/2020 13:04 Anesthesia Comments: local Datetime: 08/16/2020 13:00 PROCEDURE TIME OUT Procedure Verify: Correct Patient Position ANESTHESIA Anesthesia Plans: Epidural Epidural Positioning: Sitting Datetime: 08/16/2020 12:51 Vaginal Exam Comments: patient requested SVE prior to epidural placement. Datetime: 08/16/2020 12:31 Provider Notified (Name): Dr. Henson Communication Comments: Notified provider of inconsistent contraction pattern, early decels and pat ient request for epidural. Will come to eval patient. Datetime: 08/16/2020 11:45 Monitor Interventions for UA: [place] Adjusted Contraction Comments: Unable to determine contraction pattern d/t maternal positioning; RN @ bedsid e for toco adjustments. Datetime: 08/16/2020 11:05 Pain Coping: Talking Through Contractions; Breathing Through Contractions Pain Assessment Comments: Pt continues to tolerate ctx. Datetime: 08/16/2020 10:30 FHR Baseline Changes: No Baseline Change Datetime: 08/16/2020 10:05 Pitocin Checklist: At Least 1 Acceleration of 15 bpm x 15 Seconds in 30 Minutes or Adequate Variabi lity; No More than 1 Late Deceleration Occurred in Past 30 Minutes; No More than 2 Variable Decelerat ions > 60 Seconds in Duration and decreasing >60 bpm in 30 minutes; No More than 5 Uterine Contractio ns in 10 Minutes for any 20 Minute Interval; Uterus Palpates Soft between Contractions Datetime: 08/16/2020 08:34 Hygiene: Shower Datetime: 08/16/2020 07:29 Oxygen Method: Room Air Datetime: 08/16/2020 07:00 Stage of : Labor Datetime: 08/16/2020 06:20 COMMUNICATION Communication: Call/Page Placed to Provider Datetime: 08/16/2020 04:40 Respirations: 18 Temperature (C): 36.9 Temperature Route: Oral Datetime: 08/16/2020 02:24 Cervical Ripening Agents: Cytotec @ Datetime: 08/15/2020 23:10 Analgesics/Sedatives: Ambien (mg) @ 5 Datetime: 08/15/2020 21:59 MATERNAL ASSESSMENT Headache: Denies Breath Sounds, Left: Clear and Equal Breath Sounds, Right: Clear and Equal RUQ Epigastric Pain: Denies Datetime: 08/15/2020 19:50 Notification Reason: Status Update; Status Datetime: 08/15/2020 16:39 Vaginal Bleeding: Normal Show Cervix, Consistency: Soft Cervix, Position: Midposition Datetime: 08/15/2020 12:27 PATIENT CARE IV/Blood Work: IV Bolus Started Datetime: 08/15/2020 08:02 Monitor Interventions for FHR: Ultrasound Adjusted Datetime: 08/15/2020 08:00 Provider Reviewed Strip: Yes
--- NOTE | 2020-08-19 11:46 | DISCHARGE SUMMARY ---
"Discharge Summary Admit Date: 08/14/20 Discharge Date: 08/18/20 Code Status: Attempt Resuscitation Condition at Discharge: Good Discharge Disposition: 01 Home, Self Care - DIAGNOSES Admission Diagnoses: in 40th week Elective induction of labor Discharge Diagnoses with Status of Each Condition: s/p non-reassuring surveillance - CONSULTS | PROCEDURES Procedures: 08/16/2020 Primary low transverse for non-reassuring surveillance. Surgery was uncomplicated. Pt had umbilical cord compressed between lower uterine segment and head. - HOSPITAL COURSE Hospital Course: Admitted and induced with misoprostol followed by pitocin. Epidural done. Repetitive declerations became significant at 8-9cm and were refractory to intrauterine resuscitation. Uncomplicated performed. By postop day 2 she was requesting discharge home. Was eating, urinating, ambulating, and without issues. No problems with mood, bleeding, or pain control. - ALLERGIES Allergies/Adverse Reactions: Allergies Allergy/AdvReac Type Severity Reaction Status Date / Time No Known Drug Allergies Allergy Verified 12/19/19 13:53 - MEDICATIONS Home Medications: Ambulatory Orders Medication Instructions Recorded Confirmed oxyCODONE [Roxicodone] 5 mg PO Q4-6H #10 tablet 12/02/15 Acetaminophen [Acetaminophen Extra 1,000 mg PO Q6H PRN #45 tablet 08/17/20 Strength] Docusate Sodium 100Mg Capsule 100 mg PO BID PRN #30 cap 08/17/20 [Colace 100Mg Capsule] Ibuprofen [Motrin] 600 mg PO Q6H PRN #30 tab 08/17/20 oxyCODONE [Roxicodone] 2.5 - 5 mg PO Q4H PRN #20 tablet 08/17/20 - PHYSICAL EXAM AT DISCHARGE General Appearance: positive: No acute distress Abdomen: positive: Non-tender, No distention, Other (fundus firm, 1cm below umbilicus. Incision clean/intact without erythema. ) Extremities: positive: No pedal edema - LABS Result Diagrams: 08/14/20 18:31 - FOLLOW UP Follow Up: 1 week"
== END 2020-08-18 14:30 | disposition home or self-care (01) | DRG 788 ==
LOC: WFO 16:43 → FBP 16:43 → WFO 17:42 → FBP 17:43 → OBSVTOIN 08-16 08:07 → FBP 08-16 16:34
PROVIDERS: ADMIT Nurse Practitioner Obstetrics & Gynecology; ATTEND Obstetrics & Gynecology
PROC: 10D00Z1 Extraction of Products of Conception, Low, Open Approach (ICD-10-PCS; principal; 2020-08-16 15:30)
DX: O76 Abnormality in fetal heart rate and rhythm complicating labor and delivery (principal); O69.2XX0 Labor and delivery complicated by other cord entanglement, with compression, not applicable or unspecified; Z3A.40 40 weeks gestation of pregnancy; Z37.0 Single live birth; O99.214 Obesity complicating childbirth; E66.9 Obesity, unspecified
CPT/HCPCS: 36415; 85025; 86850; 86900; 86901; A9270; G0378; J2210; J2274; J7120

== ENCOUNTER 2020-08-20 12:42 | Outpatient (CLI) | payer OTHER | END 2020-08-20 14:20 | disposition home or self-care (01) | LOC: WFO 12:42 → FBP 12:44 → WFO 14:20 | PROVIDERS: ATTEND Pediatrics | DX: Z39.1 Encounter for care and examination of lactating mother (principal) | CPT/HCPCS: 99404 ==

== ENCOUNTER 2020-09-15 17:39 | Emergency (ER) | payer OTHER ==
[2020-09-15 17:49] VITALS: BP 123/70
[2020-09-15] MEDS ORDERED: cephALEXin 250 MG CAPSULE PO STA (18:37)
--- NOTE | 2020-09-15 18:39 | ED Physician Documentation ---
PD HPI SKIN - Stated complaint Stated Complaint: INCISION PROBLEM - Chief complaint Chief Complaint: Laceration - History obtained from History obtained from: Patient ( a month ago tomorrow because of distress. Mild pain to the left side of the Pfannenstiel incision starting a few days ago and some drainage starting yesterday. No fevers. She has no other health issues.) Review of Systems Constitutional: reports: Reviewed and negative Eyes: reports: Reviewed and negative Ears: reports: Reviewed and negative Nose: reports: Reviewed and negative Throat: reports: Reviewed and negative Cardiac: reports: Reviewed and negative PD PAST MEDICAL HISTORY - Past Medical History Cardiovascular: None Respiratory: None Neuro: None Endocrine/Autoimmune: None GI: None : None Musculoskeletal: None Derm: None - Past Surgical History Past Surgical History: No - Present Medications Home Medications: Ambulatory Orders Medication Instructions Recorded Confirmed oxyCODONE [Roxicodone] 5 mg PO Q4-6H #10 tablet 12/02/15 Acetaminophen [Acetaminophen Extra 1,000 mg PO Q6H PRN #45 tablet 08/17/20 Strength] Docusate Sodium 100Mg Capsule 100 mg PO BID PRN #30 cap 08/17/20 [Colace 100Mg Capsule] Ibuprofen [Motrin] 600 mg PO Q6H PRN #30 tab 08/17/20 oxyCODONE [Roxicodone] 2.5 - 5 mg PO Q4H PRN #20 tablet 08/17/20 cephALEXin [Keflex] 500 mg PO Q6H #28 cap 09/15/20 - Allergies Allergies/Adverse Reactions: Allergies Allergy/AdvReac Type Severity Reaction Status Date / Time No Known Drug Allergies Allergy Verified 09/15/20 17:45 - Social History Does the pt smoke?: No Smoking Status: Never smoker Does the pt drink ETOH?: No Does the pt have substance abuse?: No - Immunizations Immunizations are current?: Yes PD ED PE NORMAL - Vitals Vital signs reviewed: Yes - General General: Alert and oriented X 3, No acute distress - HEENT HEENT: PERRL, EOMI - Abdomen Abdomen: Non tender - Derm Derm: Other (The Pfannenstiel incision is well-healed, on the left side there are just some pinpoint areas of dehiscence with just spot of pus that was sent for culture.) - Neuro Neuro: Alert and oriented X 3, Normal speech Results - Vitals Vitals: Vital Signs - 24 hr 09/15/20 17:45 Temperature 36.5 C Heart Rate 81 Respiratory 16 Rate Blood Pressure 123/70 O2 Saturation 99 Oxygen O2 Source Room air Departure - Departure Disposition: 01 Home, Self Care Clinical Impression: Wound infection Condition: Good Record reviewed to determine appropriate education?: Yes Instructions: ED Wound Infec After Surgery Prescriptions: cephALEXin [Keflex] 500 mg PO Q6H #28 cap Comments: We are performing a wound culture, the results should be done in 48-72 hours. If antibiotic change is necessary we will call you. Return if worse in the meantime, especially if you develop increased pain, fevers, cannot keep down the medication. Otherwise follow-up with your physician in approximately 2-3 days.
== END 2020-09-15 18:42 | disposition home or self-care (01) ==
LOC: ED 17:39
DX: O86.01 Infection of obstetric surgical wound, superficial incisional site (principal); O90.0 Disruption of cesarean delivery wound
CPT/HCPCS: 87070; 87205; 99283; 99284; A9270